=== PATIENT | female | born 1990 | race Caucasian/White ===

== ENCOUNTER → 2021-06-24 | Day surgery (SDC) | payer OTHER ==
[~2021-06-24] VITALS: Ht 157.5 cm; Wt 59.0 kg
[~2021-06-24] MED LIST: CYCLOBENZAPRINE10 MG PO; IBUPROFEN800 MG PO; NORCO 5-325 TA1 EACH PO; PERCOCET 5-3251 EACH PO
[2021-06-24 06:33] LABS: HCG (URINE) SCREEN NEGATIVE (NEGATIVE)
== END | disposition home or self-care (01) ==
LOC: FAS 06:17
PROVIDERS: Orthopaedic Surgery
DX: S42.022A Displaced fracture of shaft of left clavicle, initial encounter for closed fracture (principal); F17.200 Nicotine dependence, unspecified, uncomplicated; W17.89XA Other fall from one level to another, initial encounter
CPT/HCPCS: 84703; C1713; J1100; J1170; J1885; J2001; J2250; J2405; J2704; J3010; J7120